=== PATIENT | female | born 1940 | race Two or more races ===

== ENCOUNTER 2016-11-01 12:03 | Inpatient (IN) | payer MEDICARE, OTHER ==
[2016-10-19 16:32] LABS: BASOPHILS 0.3 %; BASOPHILS ABSOLUTE 0.02 10/3/uL (0.0-0.16); EOSINOPHILS 1.4 %; EOSINOPHILS ABSOLUTE 0.11 10/3/uL (0.0-0.53); HEMATOCRIT 37.7 % (36.0-48.0); HEMOGLOBIN 12.5 g/dL (12.0-16.0); IMMATURE GRANULOCYTES 0.3 %; IMMATURE GRANULOCYTES ABSOLUTE 0.02 10/3/uL (0.0-0.11); LYMPHOCYTES 27.2 %; LYMPHOCYTES ABSOLUTE 2.14 10/3/uL (0.67-4.30); MANUAL DIFF NO %; MEAN CORPUS HGB CONC 33.2 g/dL (32.0-36.0); MEAN CORPUSCULAR HEMOGLOB 30.6 pg (26.0-34.0); MEAN CORPUSCULAR VOLUME 92.4 fL (80-100); MONOCYTES ABSOLUTE 0.63 10/3/uL (0.21-1.20); NEUTROPHILS 62.8 %; NEUTROPHILS ABSOLUTE 4.96 10/3/uL (2.02-8.40); PLATELET COUNT 167 10/3/uL (150-400); RBC DISTRIBUTION WIDTH 13.8 % (12.0-16.0); RED CELL COUNT 4.08 10/6/uL (4.0-5.6); WHITE BLOOD CELLS 7.9 10/3/uL (4.5-10.5)
[2016-10-19 16:33] LABS: ASCORBIC ACID (UR NOT ORDER) NEG (NEG); BILIRUBIN, URINE NEGATIVE (NEG); KETONE, URINE NEGATIVE (NEG); LEUKOCYTE ESTERASE(NOT OR NEG (NEG); WBC (NOT ORDERED) (RFLEX) < 1 (0-5)
[2016-10-19 16:45] LABS: A/G RATIO 1.1 (0.7-1.9); BUN (BLOOD UREA NITROGEN) 20 MG/DL (6-23); CALCIUM, SERUM 9.5 MG/DL (8.5-10.4); CHLORIDE, SERUM 103 MMOL/L (96-112); CO2 (CARBON DIOXIDE) 30 MMOL/L (24-34); CREATININE 0.91 MG/DL (0.55-1.02); GFR AFRICAN AMERICAN 70 ML/MIN (>=60); GFR NON AFRICAN AMERICAN 60 ML/MIN (>=60); GLOBULIN 3.8 G/DL (2.5-4.1); POTASSIUM, SERUM 4.6 MMOL/L (3.5-5.3); SGOT(AST) 15 U/L (5-40); SGPT(ALT) 25 U/L (5-65); SODIUM, SERUM 141 MMOL/L (135-148); TOTAL BILIRUBIN 0.4 MG/DL (0-1.2); TOTAL PROTEIN 7.8 G/DL (6.0-8.5)
[2016-10-19 16:46] LABS: INTERNATIONAL NORMAL RATI 1.1 UNITS (-); PROTIME (NOT ORD) 13.7 SEC (12.0-14.5)
[2016-10-19 16:47] LABS: ALKALINE PHOSPHATASE 122 U/L (45-117); GLUCOSE, SERUM 84 MG/DL (60-99)
--- NOTE | ~2016-11-01 | OP ---
Record Of Operation [facility] [address] [place]. 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 PROCEDURE: Left acetabular revision. SURGEON: Kristan Patton M.D. [employer]RECTIONAL CORPORAL: See chart. DESCRIPTION OF PROCEDURE: The patient was taken to the operating room and placed supine on the table in normal fashion without incident. General anesthetic was induced per the anesthesiologist. The patient was carefully positioned, padded, prepped, and draped in normal sterile fashion. Sharp dissection was made through the old incision with electrocautery through the fat. The IT band was split in line with its fibers. A Charnley retractor was placed over moist laps leaving IT open up. Soft tissue was elevated off the posterior capsule. Posterior capsulectomy was performed. The hip was carefully dislocated. The acetabular component was removed. The cement came out with it. The acetabular fossa was meticulously curetted out and debrided of granulation tissue as well as hypertrophic foreign body-type granulation tissue all around the capsule. I carefully inspected the femoral component, felt that it was stable and intact with no evidence of motion or even micromotion or fluid shifts. Attention was then directed back to the acetabulum. It was prepared with sequential reamers up to a 55, and a 56 multihole [place] cup was placed and impacted with excellent interference fit after copious irrigation. Four screws were placed in standard fashion with drill depth gauge and self-tapping screw placement, which gave excellent fixation. With the trial liner in place, there was excellent re- creation of her leg length and excellent stability. Therefore, the actual 28 mm inner diameter +4, 10 degree lipped liner was placed and impacted. The hip was relocated, gave excellent stability throughout full range of motion and could not be dislocated without traction. It also appeared to re-create her leg length appropriately (she had complained of this leg being shortened at aspirate to be lengthened preoperatively). Wound was copiously irrigated with pulsatile lavage. External rotators were reattached to the posterior trochanter with two drill holes using fiber wires. Care was taken not to injure or even get close to the sciatic nerve. Medium ConstaVac drain was placed distally anteriorly. IT band and was closed, subcutaneous, and skin. Wound was dressed sterilely. The patient was awakened and taken to postanesthesia care unit without incident. COMPLICATIONS: None. SPECIMENS: Removed component and cultures. ESTIMATED BLOOD LOSS: About 100 mL. Record Of Operation [address] [address] NAME: ENRIKE GUERRA : 36 STATUS : ADM IN [facility]#: [id number] AGE: 76 ADM/REG DATE : 11/01/16 MR#: [id number] REPORT SERV DATE: 11/01/16 DICTATED BY: KRISTINA PATTON DATE: 11/01/16 REPORT STATUS : Draft TRANSCRIBED BY: JH DATE: 11/01/16 [facility] Kristan Patton M.D. / [id number] CC: Kristan Patton M.D.
[~2016-11-01 12:03] MED LIST: LOSARTAN/HCTZ
[2016-11-02 04:34] LABS: HEMOGLOBIN 10.2 g/dL (12.0-16.0)
[2016-11-02 04:35] LABS: HEMATOCRIT 30.8 % (36.0-48.0)
[2016-11-02 04:42] LABS: INTERNATIONAL NORMAL RATI 1.2 UNITS (-); PROTIME (NOT ORD) 15.1 SEC (12.0-14.5)
[2016-11-02 04:50] LABS: BUN (BLOOD UREA NITROGEN) 22 MG/DL (6-23); CALCIUM, SERUM 8.5 MG/DL (8.5-10.4); CHLORIDE, SERUM 104 MMOL/L (96-112); CO2 (CARBON DIOXIDE) 23 MMOL/L (24-34); CREATININE 1.14 MG/DL (0.55-1.02); GFR AFRICAN AMERICAN 53 ML/MIN (>=60); GFR NON AFRICAN AMERICAN 46 ML/MIN (>=60); GLUCOSE, SERUM 172 MG/DL (60-99); POTASSIUM, SERUM 4.4 MMOL/L (3.5-5.3); SODIUM, SERUM 139 MMOL/L (135-148)
[2016-11-03 05:55] LABS: BASOPHILS 0 %; EOSINOPHILS 0 %; HEMOGLOBIN 9.3 g/dL (12.0-16.0); IMMATURE GRANULOCYTES 0.3 %; IMMATURE GRANULOCYTES ABSOLUTE 0.04 10/3/uL (0.0-0.11); LYMPHOCYTES 9.3 %; LYMPHOCYTES ABSOLUTE 1.21 10/3/uL (0.67-4.30); MEAN CORPUS HGB CONC 33.6 g/dL (32.0-36.0); MEAN CORPUSCULAR HEMOGLOB 30.7 pg (26.0-34.0); MEAN CORPUSCULAR VOLUME 91.4 fL (80-100); MEAN PLATELET VOLUME 10.7 fL (9.2-13.0); MONOCYTES 6.9 %; NEUTROPHILS 83.5 %; NEUTROPHILS ABSOLUTE 10.91 10/3/uL (2.02-8.40); PLATELET COUNT 142 10/3/uL (150-400); RBC DISTRIBUTION WIDTH 13.5 % (12.0-16.0)
[2016-11-03 06:00] LABS: WHITE BLOOD CELLS 13.1 10/3/uL (4.5-10.5)
[2016-11-03 06:01] LABS: HEMATOCRIT 27.7 % (36.0-48.0); INTERNATIONAL NORMAL RATI 2.2 UNITS (-); MANUAL DIFF NO %; PROTIME (NOT ORD) 24.5 SEC (12.0-14.5); RED CELL COUNT 3.03 10/6/uL (4.0-5.6)
[2016-11-03 06:03] LABS: BUN (BLOOD UREA NITROGEN) 26 MG/DL (6-23); CALCIUM, SERUM 8.3 MG/DL (8.5-10.4); CHLORIDE, SERUM 107 MMOL/L (96-112); CO2 (CARBON DIOXIDE) 27 MMOL/L (24-34); CREATININE 0.93 MG/DL (0.55-1.02); GFR AFRICAN AMERICAN 68 ML/MIN (>=60); GFR NON AFRICAN AMERICAN 59 ML/MIN (>=60); GLUCOSE, SERUM 128 MG/DL (60-99); POTASSIUM, SERUM 4.3 MMOL/L (3.5-5.3); SODIUM, SERUM 141 MMOL/L (135-148)
[2016-11-03] MEDS ORDERED: NORCO1 TA2 PO (14:36)
[2016-11-03] MEDS ORDERED: C2 (14:36)
== END 2016-11-03 16:08 | disposition home health service (06) | DRG 468 ==
LOC: SDC/OF 12:03 → PACU 16:08 → 3SO 17:19
PROVIDERS: Specialist
PROC: 0SPB09Z Removal of Liner from Left Hip Joint, Open Approach (ICD-10-PCS; 2016-11-01)
PROC: 0SUB09Z Supplement Left Hip Joint with Liner, Open Approach (ICD-10-PCS; 2016-11-01)
PROC: 0SPB0JZ Removal of Synthetic Substitute from Left Hip Joint, Open Approach (ICD-10-PCS; 2016-11-01)
PROC: 0SRB02Z Replacement of Left Hip Joint with Metal on Polyethylene Synthetic Substitute, Open Approach (ICD-10-PCS; principal; 2016-11-01 14:15)
DX: T84.52XA Infection and inflammatory reaction due to internal left hip prosthesis, initial encounter (principal); I10 Essential (primary) hypertension
CPT/HCPCS: 36415; 71020; 72170; 80048; 80053; 81001; 85014; 85018; 85025; 85610; 86850; 86900; 86901; 87015; 87070; 87075; 87102; 87116; 87205; 87641; 88300; 88304; 93005; 97110-GP; 97116-GP; 97161-GP; 97165-GO; A9270-GY; C1713; C1776; G8978-CK-GP; G8979-CI-GP; G8987-CJ-GO; G8988-CJ-GO; G8989-CJ-GO; J1170; J1580; J1885; J2250; J2270; J2405; J2710; J2795; J3010; J3370